=== PATIENT | female | born 1995 | race Caucasian/White ===

== ENCOUNTER 2021-02-10 18:50 | Emergency (ER) | payer OTHER ==
[~2021-02-10] VITALS: Ht 170.2 cm; Wt 192.8 kg
[2021-02-10 19:23] LABS: URINE BILIRUBIN NEGATIVE (Negative); URINE BLOOD 3+ (Negative); URINE CLARITY CLEAR; URINE COLOR YELLOW; URINE GLUCOSE-RANDOM* NEGATIVE (Negative); URINE KETONES NEGATIVE (Negative); URINE LEUKOCYTES-REFLEX TRACE (Negative); URINE NITRITE-REFLEX NEGATIVE (Negative); URINE PROTEIN (DIPSTICK) NEGATIVE (Negative); URINE SPECIFIC GRAVITY >= 1.030 (1.005-1.035); URINE UROBILINOGEN 0.2 E.U./dl (0.2-1.0)
[2021-02-10 19:29] LABS: SQUAMOUS >10 Many /LPF (0-3); URINE WBC-REFLEX None Seen /HPF (0-5)
[2021-02-10 19:30] LABS: BACTERIA-REFLEX None Seen /HPF (None Seen); CRYSTALS None Seen /LPF (None Seen)
[2021-02-10 19:40] LABS: ABSOLUTE NEUTROPHILS 9.3 thou/uL (1.4-8.2); BASOPHILS 0.3 % (0.0-2.0); EOSINOPHILS 0.8 % (0.0-3.0); HEMATOCRIT 41.4 % (37.0-47.0); HEMOGLOBIN 14.1 gm/dL (12.0-15.0); LYMPHOCYTES 28.6 % (24.0-44.0); MCH 29.7 pg (26.0-34.0); MCHC 34.1 g/dL (28.0-37.0); MCV 87.1 fL (80.0-100.0); MONOCYTES 5.3 % (1.0-8.0); PLATELET COUNT 286 thou/uL (150-400); RBC 4.75 mil/uL (4.20-5.00); RDW 13.9 % (10.5-14.5); WBC 14.3 thou/uL (4.0-11.0)
[2021-02-10 19:50] LABS: ANION GAP 12 mmol/L (7-16); BUN 8 mg/dL (7-18); CHLORIDE 102 mmol/L (98-107); CO2 24 mmol/L (21-32); CREATININE 0.7 mg/dL (0.6-1.0); GLUCOSE 84 mg/dL (74-106); POTASSIUM 3.5 mmol/L (3.5-5.1); SODIUM 138 mmol/L (136-145)
[2021-02-10 20:03] LABS: ALBUMIN 3.4 g/dL (3.4-5.0); DIRECT BILIRUBIN < 0.1 mg/dL (<0.1-0.2); LIPASE 86 U/L (73-393); SGOT 13 U/L (15-37); SGPT 25 U/L (14-59); TOTAL BILIRUBIN 0.4 mg/dL (0.2-1.0)
[2021-02-10] MEDS ORDERED: CARAFATE 1 GM TA1 G1 PO ×2 (20:24→20:49)
[2021-02-10] MEDS ORDERED: OMEPRAZOLE 20 M20 M1 PO ×2 (20:24→20:49)
[2021-02-10 20:30] VITALS: BP 160/101
[2021-02-10] MEDS ORDERED: DROSP-EE-LEVOM1 EACH PO (21:51)
[2021-02-10] MEDS ORDERED: VYVANSE40 MG PO (21:51)
[2021-02-10] MEDS ORDERED: CITALOPRAM HBR40 MG PO (21:51)
[2021-02-10] MEDS ORDERED: HYDROCHLOROTHIA25 M1 PO (21:51)
[2021-02-10] MEDS ORDERED: SINGULAIR 10 MG10 M1 PO (21:51)
[2021-02-10] MEDS ORDERED: REMERON 30 MG T30 M1 PO (21:51)
[2021-02-10] MEDS ORDERED: BUSPIRONE HCL15 MG PO (21:51)
[2021-02-10] MEDS ORDERED: CLONAZEPAM 1 MG1 M1 PO (21:52)
[2021-02-10] MEDS ORDERED: HYDROXYZINE HCL25 M2 PO (21:52)
== END 2021-02-10 20:45 | disposition home or self-care (01) ==
LOC: ER 18:50
PROVIDERS: Nurse Practitioner
DX: R31.9 Hematuria, unspecified (principal); K21.9 Gastro-esophageal reflux disease without esophagitis; I10 Essential (primary) hypertension; Z88.8 Allergy status to other drugs, medicaments and biological substances